=== PATIENT | male | born 1960 | race Two or more races ===

== ENCOUNTER 2018-07-08 05:10 | Inpatient (IN) | payer OTHER ==
[~2018-07-08] VITALS: Ht 182.9 cm; Wt 113.4 kg
[2018-07-08] MEDS ORDERED: KETOROLAC TROMETHAMINE INJ 30 MG/ML VIAL ONE (06:06)
[2018-07-08] MEDS ORDERED: ANESTHESIA TRAY IN PYXIS 1 EA TRAY MC ONE (06:06)
[2018-07-08] MEDS ORDERED: BACITRACIN 50000 UNITS/VIAL ONE (06:07)
[2018-07-08] MEDS ORDERED: BUPIVACAINE MPF 0.5% W/EPI INJ 30 ML VIAL ONE (06:07)
[2018-07-08] MEDS ORDERED: oxyCODONE HCL SR 10MG TAB.SR.12H PO ONE (06:10)
[2018-07-08] MEDS ORDERED: CEFAZOLIN SODIUM/DEXTROSE,ISO 50 ML IV ONE (06:11)
[2018-07-08] MEDS ORDERED: CELECOXIB 100 MG CAPSULE ONE (06:11)
[2018-07-08] MEDS ORDERED: ACETAMINOPHEN 325 MG TABLET ONE (06:12)
[2018-07-08] MEDS ORDERED: MORPHINE SULFATE/PF 10 MG/10ML (1MG/ML) AMPUL ONE (06:26)
[2018-07-08] MEDS ORDERED: MIDAZOLAM HCL 2 MG/2ML VIAL ONE (06:27)
[2018-07-08] MEDS ORDERED: BUPIVACAINE 0.75% DEXT-PF 2 ML AMPUL ONE (06:28)
[2018-07-08] MEDS ORDERED: TRANEXAMIC ACID 3,000 MG in SODIUM CHLORIDE IRRIG SOLUTION 70 ML IR ONE (07:30)
[2018-07-08 08:00] VITALS: BP 150/79
[2018-07-08] MEDS ORDERED: FENTANYL PF 100MCG/2ML AMPUL ONE ×2 (08:36→08:44)
[2018-07-08] MEDS ORDERED: HYDROMORPHONE INJ 2 MG/ML DISP.SYRIN ONE (09:00)
--- NOTE | 2018-07-08 11:00 | NUR ---
RN NOTES PT WAS BROUGHT ONTO THE FLOOR FROM SURGERY IN STABLE CONDITION. VITALS ARE STABLE, PT ABLE TO TOLERATE ROOM AIR. L KNEE DRESSING IS INTACT WITH NO SIGNS OF BLEEDING NOTED. PT IS ABLE TO WIGGLE HIS TOES ON BOTH FEET AND CAN FEEL SENSATION. PT STATES THAT HE IS IN 10/10 PAIN AND NEEDS SOMETHING FOR PAIN MANAGEMENT SOON POSSIBLE. WILL FOLLOW UP WITH PHARMACY FOR MEDICATIONS ORDERED BY .
[2018-07-08] MEDS: HYDROMORPHONE INJ 2 MG/ML DISP.SYRIN SQ PRN ×5 (11:29→23:38)
[2018-07-08 11:30] VITALS: BP 162/91
[2018-07-08] MEDS ORDERED: ACETAMINOPHEN 325 MG TABLET PO PRN (11:30)
[2018-07-08] MEDS ORDERED: NALOXONE HCL 0.4 MG/ML AMPUL IV PRN (11:30)
[2018-07-08] MEDS ORDERED: oxyCODONE IR immediate release 5 MG PO PRN ×2 (11:30→20:30)
[2018-07-08] MEDS ORDERED: SENNOSIDES 8.6 MG TABLET PO PRN (11:30)
[2018-07-08] MEDS ORDERED: ZOLPIDEM TARTRATE 5 MG TABLET PO PRN (11:30)
[2018-07-08] MEDS ORDERED: MENTHOL/CETYLPYRD (CEPACOL) 1 LOZ LOZENGE MM PRN (11:30)
[2018-07-08] MEDS ORDERED: BISACODYL SUPP (10 MG) 10 MG/SUPP.RECT SUPP.RECT RC PRN (11:30)
[2018-07-08] MEDS ORDERED: ONDANSETRON HCL/PF 4 MG/2 ML VIAL IVP PRN ×2 (11:30→21:30)
[2018-07-08] MEDS ORDERED: MAGNESIUM HYDROXIDE 30 ML UDC PO PRN ×2 (11:30→21:30)
[2018-07-08] MEDS ORDERED: CLONIDINE HCL 0.1 MG TABLET PO PRN (11:30)
[2018-07-08] MEDS ORDERED: diphenhydrAMINE HCL 25 MG CAPSULE PO PRN (11:30)
[2018-07-08] MEDS ORDERED: MAG HYDROX/AL HYDROX/SIMETH 30 ML UDC PO PRN ×2 (11:30→21:30)
[2018-07-08] MEDS: oxyCODONE IR immediate release 5 MG PO PRN ×4 (11:34→21:56)
--- NOTE | 2018-07-08 11:35 | NUR ---
RN NOTES PT CRYING AND MOANING, STATES HE IS IN 10/10 PAIN AFTER SURGERY. DILAUDID 1 MG GIVEN ORDERED. AMMUNITION ASSEMBLY LABORER MADE AWARE OF PTS PAIN AND STATED TO GIVE OXYCODONE IR 15MG ORDERED PRN.WILL CONTINUE TO MONITOR.
--- NOTE | 2018-07-08 12:05 | NUR ---
RN NOTES PT STATES HE IS STILL IN 10/10 PAIN WITH NO RELIEF FROM MEDICATIONS, CRYING AND SCREAMING. DR. RAGLAND CALLED AND MADE AWARE OF UNCONTROLLED PAIN. PER MD, CONTINUE TO MONITOR PAIN FOR HALF AN HOUR TO SEE IF PAIN IS BETTER CONTROLLED.
[2018-07-08 12:25] VITALS: BP 141/82
--- NOTE | 2018-07-08 12:35 | NUR ---
RN NOTES PT IS IN BED WITH AT BEDSIDE. PT IS STILL MOANING IN PAIN, STATES THAT HE STILL HAS 10/10 PAIN WITH NO RELIEF FROM THE DILAUDID OR OXY IR GIVEN. BP IS 141/82, HR IS 105. WILL NOTIFY MD AND CONTINUE TO MONITOR.
[2018-07-08] MEDS ORDERED: oxyCODONE IR immediate release 5 MG PO ONE (13:30)
[2018-07-08] MEDS: ANCEF 1 GM/50 ML D5W IV SCH ×4 (14:32→23:38)
[2018-07-08] MEDS: IV D5/0.45 NACL 1,000 ML IV PRN (14:32)
[2018-07-08] MEDS ORDERED: OXYC-133 PO (15:06)
[2018-07-08] MEDS ORDERED: FAMO20TA8 PO (15:06)
[2018-07-08] MEDS ORDERED: PIOG45TA5 PO (15:06)
[2018-07-08] MEDS ORDERED: METF10004 PO (15:06)
[2018-07-08] MEDS ORDERED: SIMV10TA6 PO (15:06)
[2018-07-08] MEDS ORDERED: SITA100T PO (15:06)
[2018-07-08] MEDS ORDERED: LISI10TA5 PO (15:06)
[2018-07-08 16:00] VITALS: BP 150/79
[2018-07-08] MEDS: DOCUSATE SODIUM 100 MG CAPSULE PO SCH (17:31)
[2018-07-08] MEDS ORDERED: MAGNESIUM CITRATE 296 ML BOTTLE PO STA (17:52)
[2018-07-08 18:30] VITALS: BP 140/73
--- NOTE | 2018-07-08 18:32 | NUR ---
RN NOTES PT IS SITTING UP IN BED WITH CPM MACHINE IN PLACE. PT ON RA, RESPIRATIONS ARE EVEN AND UNLABORED. IV ON L WRIST INTACT AND RUNNING D51/2 NS@75ML/HR. FUENTES CATHETER IS IN PLACE AND DRAINING TO GRAVITY. ALL MEDS WERE GIVEN ORDERED AND PT NEEDS MET. SAFETY MEASURES ARE IN PLACE, CALL LIGHT IS IN REACH. WILL ENDORSE TO PHLEBOTOMIST ASSOCIATE RN FOR CONTINUITY OF CARE.
--- NOTE | 2018-07-08 19:15 | NUR ---
TELE/RN NOTES RECEIVED PT. LYING IN BED. PT. IS AWAKE, ALERT AND ORIENTED X4. BREATHING EVEN AND UNLABORED ON ROOM AIR. NO SOB OR RESPIRATORY DISTRESS NOTED AT THIS TIME. PT. COMPLAINING OF PAIN IN LEFT KNEE, PT. STATED HE RECENTLY RECEIVED PAIN MEDICATION AND IT IS EFFECTIVE. WILL CONTINUE TO MONITOR AND ASSESS PT. PAIN LEVEL AND ADMINISTER TO PT. PAIN MEDICATION ORDERED. PT. WITH EXTERNAL CAVING GUIDE PRESENT AND INTACT, CURRENT RHYTHM = SINUS TACHYCARDIA HR 118, PER DAYSHIFT NURSE IS AWARE. PT. WITH LEFT WRIST 18 GAUGE PERIPHERAL IV PRESENT, PATENT AND INTACT. PT. WITH FUENTES CATHETER PRESENT, PATENT AND INTACT DRAINING CLEAR YELLOW URINE. PT. WITH LEFT KNEE POST OP DRESSING PRESENT, CLEAN, DRY AND INTACT. NO BLEEDING OR DRAINAGE NOTED. BED LOCKED AND IN LOWEST POSITION, SIDE RAILS UP X2, CALL LIGHT WITHIN REACH, WILL CONTINUE TO MONITOR.
[2018-07-08 20:00] VITALS: BP 139/76
[2018-07-08] MEDS ORDERED: FAMOTIDINE (20 MG) 20 MG TABLET PO SCH (21:00)
[2018-07-08] MEDS ORDERED: DEXTROSE 50%-WATER 50 ML DISP.SYRIN IV PRN (21:30)
[2018-07-08] MEDS: SIMVASTATIN 10 MG TABLET PO SCH (21:55)
[2018-07-08] MEDS: TAMSULOSIN 0.4 MG CAP.SR.24H PO SCH (21:56)
[2018-07-08] MEDS: BLOOD SUGAR DIAGNOSTIC 1 EACH STRIP VI SCH (22:04)
[2018-07-08] MEDS: *INSULIN REGULAR(HUMULIN R)HUM 100 UNIT/ML VIAL SQ PRN (22:05)
[2018-07-09] VITALS: BP 137/75
[2018-07-09] MEDS: oxyCODONE IR immediate release 5 MG PO PRN ×8 (01:35→23:30)
[2018-07-09] MEDS: HYDROMORPHONE INJ 2 MG/ML DISP.SYRIN SQ PRN ×7 (02:39→21:31)
[2018-07-09] MEDS: IV D5/0.45 NACL 1,000 ML IV PRN (05:03)
--- NOTE | 2018-07-09 06:50 | NUR ---
TELE/RN NOTES PT. IS LYING IN BED. PT. IS AWAKE, ALERT AND ORIENTED X4. BREATHING EVEN AND UNLABORED ON ROOM AIR. NO SOB OR RESPIRATORY DISTRESS NOTED AT THIS TIME. PT. COMPLAINING OF PAIN IN LEFT KNEE, PAIN MEDICATION IS NOT DUE AT THIS TIME, WILL ADMINISTER TO PT. PAIN MEDICATION WHEN AVAILABLE. PT. WITH EXTERNAL OUTSOLE FLEXER PRESENT AND INTACT, CURRENT RHYTHM = SINUS TACHYCARDIA HR 106. PT. WITH LEFT WRIST 18 GAUGE PERIPHERAL IV PRESENT, PATENT AND INTACT. PT. WITH FUENTES CATHETER PRESENT, PATENT AND INTACT DRAINING CLEAR YELLOW URINE. PT. WITH LEFT KNEE POST OP DRESSING PRESENT, CLEAN, DRY AND INTACT. NO BLEEDING OR DRAINAGE NOTED. ALL PT. NEEDS MET. BED LOCKED AND IN LOWEST POSITION, SIDE RAILS UP X2, CALL LIGHT WITHIN REACH, WILL ENDORSE TO DAYSHIFT NURSE FOR CONTINUITY OF CARE.
[2018-07-09] MEDS: INSULIN REGULAR, HUMAN 100 UNIT/ML 3 ML VIAL SQ PRN ×3 (06:54→17:26)
[2018-07-09] MEDS: BLOOD SUGAR DIAGNOSTIC 1 EACH STRIP VI SCH ×4 (06:56→21:41)
[2018-07-09 07:44] LABS: BASOPHILS % (AUTO) 0.2 % (0.0-2.0); EOSINOPHILS % (AUTO) 0.1 % (0.0-6.0); HEMATOCRIT 35 % (39-51); HEMOGLOBIN 11.8 g/dL (13.5-17.5); LYMPHOCYTES # (AUTO) 0.6 /CMM (0.8-4.8); LYMPHOCYTES % (AUTO) 8.3 % (20.0-44.0); MEAN CORPUSCULAR HEMOGLOBIN 30 PG (26.0-33.0); MEAN CORPUSCULAR HGB CONC 34 g/dl (31.0-36.0); MEAN CORPUSCULAR VOLUME 88 fL (80-96); MONOCYTES # (AUTO) 0.6 /CMM (0.1-1.30); MONOCYTES % (AUTO) 8.3 % (2.0-12.0); NEUTROPHILS % (AUTO) 83.1 % (43.0-81.0); PLATELET COUNT (AUTO) 218 /CMM (150-450); RDW COEFFICIENT OF VARIATION 13.6 (11.5-15.0); RED BLOOD CELL COUNT(AUTO) 3.93 MIL/uL (4.5-6.0); WHITE BLOOD COUNT (AUTO) 7.2 K/uL (4.3-11.0)
--- NOTE | 2018-07-09 07:50 | NUR ---
ms rn received on bed, awake,alert,oriented x4,s/p left knee sx , complaining of pain 09/04, will monitor patient.
[2018-07-09 08:00] VITALS: BP 136/81
[2018-07-09 08:08] LABS: CALCIUM, SERUM 8.2 mg/dL (8.5-10.1); CREATININE 0.9 mg/dL (0.6-1.3); MAGNESIUM 1.8 mg/dL (1.8-2.4); PHOSPHORUS 2.5 mg/dL (2.5-4.9); POTASSIUM 3.7 mmol/L (3.5-5.1)
--- NOTE | 2018-07-09 08:10 | NUR ---
ms slater oxi ir po given for pain, will monitor pain accordingly.
--- NOTE | 2018-07-09 08:40 | NUR ---
ms rn dilaudid 0.5 mg sq given again for breakthrough pain, will assess patient after 30 min.
[2018-07-09] MEDS: PSYLLIUM SEED 1 PKT PACKET PO SCH ×2 (08:41→16:21)
[2018-07-09] MEDS: DOCUSATE SODIUM 100 MG CAPSULE PO SCH ×2 (08:41→16:21)
[2018-07-09] MEDS: FAMOTIDINE (20 MG) 20 MG TABLET PO SCH (08:41)
[2018-07-09] MEDS: ASPIRIN 325 MG TABLET PO SCH ×2 (08:41→16:21)
[2018-07-09] MEDS: LISINOPRIL (10MG) 10 MG TABLET PO SCH (08:42)
--- NOTE | 2018-07-09 10:00 | NUR ---
ms nohemy endorsed to nohemy Minaya for continuity of care.
--- NOTE | 2018-07-09 10:32 | NUR ---
telecommunications analyst notes Spoke to Sal Soliz NP regarding patient pain medication and ordered Dilaudid 0.5 mg IV x 1 dose only. All orders carried out and noted. Will continue to monitor accordingly.
[2018-07-09] MEDS ORDERED: HYDROMORPHONE INJ 2 MG/ML DISP.SYRIN IV ONE (11:00)
[2018-07-09] MEDS ORDERED: HYDROMORPHONE INJ 0.5 MG/0.5 ML SYRINGE IV ONE (11:00)
[2018-07-09 16:00] VITALS: BP 136/73
--- NOTE | 2018-07-09 17:35 | NUR ---
ms rn notes Spoke to Sal Soliz regarding patient blood sugar, patient wondering why his sugar is elevated and informed patient due to he is on D5 1/2 NS and MD made aware and ordered to discontinue IV due to patient is eating and drinking well. All orders carried out and noted. Will continue to monitor accordingly.
--- NOTE | 2018-07-09 19:07 | NUR ---
MS RN CLOSING NOTES All needs provided, attended, and anticipated, patient in stable condition at this time. Endorsed to next shift RN to continue care. Call light with in patient reach.
--- NOTE | 2018-07-09 19:30 | NUR ---
RN NOTES RECEIVED PATIENT IN BED AWAKE. AO X 3, ABLE TO MAKE NEEDS KNOWN. NO ACUTE DISTRESS NOTED. MONITORED FOR PAIN. IV SITE PATENT, INTACT; FLUSHED. LEFT LEG DRESSING INTACT. LEFT LEG ON CPM MACHINE. FUENTES CATH PATENT, INTACT; DRAINING CLEAR YELLOW URINE. SAFETY REMINDERS GIVEN. ON LOW BED WITH BILATERAL UPPER SIDE RAILS UP. CALL COBOS WITHIN EASY REACH. WILL CONTINUE TO MONITOR.
[2018-07-09 20:00] VITALS: BP 161/81
[2018-07-09] MEDS: TAMSULOSIN 0.4 MG CAP.SR.24H PO SCH (21:31)
[2018-07-09] MEDS: SIMVASTATIN 10 MG TABLET PO SCH (21:31)
[2018-07-09] MEDS: *INSULIN REGULAR(HUMULIN R)HUM 100 UNIT/ML VIAL SQ PRN (21:40)
[2018-07-10] MEDS: HYDROMORPHONE INJ 2 MG/ML DISP.SYRIN SQ PRN ×5 (00:30→12:47)
[2018-07-10] MEDS: oxyCODONE IR immediate release 5 MG PO PRN ×4 (02:31→11:35)
--- NOTE | 2018-07-10 06:00 | NUR ---
RN NOTES PATIENT IN BED WITH EYES CLOSED, EASILY AROUSABLE. RESPIRATIONS EVEN. NO SIGNS OF DISCOMFORT AT THIS TIME. DUE MEDS GIVEN WITH NO ASE NOTED. NEEDS ATTENDED. SAFETY PRECAUTIONS AND COMFORT MEASURES IN PLACE. WILL GIVE REPORT TO DAY SHIFT FOR CONTINUITY OF CARE.
[2018-07-10] MEDS: BLOOD SUGAR DIAGNOSTIC 1 EACH STRIP VI SCH ×2 (06:31→12:47)
[2018-07-10] MEDS: INSULIN REGULAR, HUMAN 100 UNIT/ML 3 ML VIAL SQ PRN ×2 (06:33→12:14)
[2018-07-10 06:38] LABS: BASOPHILS % (AUTO) 0.4 % (0.0-2.0); EOSINOPHILS % (AUTO) 1.7 % (0.0-6.0); HEMATOCRIT 35 % (39-51); LYMPHOCYTES # (AUTO) 0.8 /CMM (0.8-4.8); LYMPHOCYTES % (AUTO) 11.9 % (20.0-44.0); MEAN CORPUSCULAR HEMOGLOBIN 31 PG (26.0-33.0); MEAN CORPUSCULAR HGB CONC 35 g/dl (31.0-36.0); MEAN CORPUSCULAR VOLUME 88 fL (80-96); MONOCYTES # (AUTO) 0.9 /CMM (0.1-1.30); MONOCYTES % (AUTO) 12.9 % (2.0-12.0); NEUTROPHILS # (AUTO) 4.8 /CMM (1.8-8.9); NEUTROPHILS % (AUTO) 73.1 % (43.0-81.0); PLATELET COUNT (AUTO) 209 /CMM (150-450); RDW COEFFICIENT OF VARIATION 13.3 (11.5-15.0); WHITE BLOOD COUNT (AUTO) 6.6 K/uL (4.3-11.0)
--- NOTE | 2018-07-10 07:20 | NUR ---
MS/RN OPENING NOTE PATIENT IS RECEIVED IN BED AWAKE. ALERT AND ORIENTED X4. DENIES SOB AT THIS TIME. RESPIRATION REGULAR AND UNLABORED. DENIES PAIN AT THIS TIME. PATIENT IN NO APPARENT DISTRESS. FUENTES CATH DRAINING CLEAR AND YELLOW COLOR URINE. LEFT KNEE INCISION DRESSING ON WITH NO STRIKE THRUE. RIGHT HAND G 22 PATENT AND SALINE LOCKED. BED LOW AND LOCKED. SIDE RAILS UP X3. CALL LIGHT WITHIN REACH. WILL CONTINUE TO MONITOR.
[2018-07-10 08:00] VITALS: BP 153/78
[2018-07-10] MEDS: ASPIRIN 325 MG TABLET PO SCH (08:34)
[2018-07-10] MEDS: DOCUSATE SODIUM 100 MG CAPSULE PO SCH (08:34)
[2018-07-10] MEDS: LISINOPRIL (10MG) 10 MG TABLET PO SCH (08:35)
[2018-07-10] MEDS: PSYLLIUM SEED 1 PKT PACKET PO SCH (08:35)
[2018-07-10] MEDS: FAMOTIDINE (20 MG) 20 MG TABLET PO SCH (08:35)
[2018-07-10 09:58] VITALS: BP 131/72
[2018-07-10] MEDS ORDERED: BISA10SU8 RC (11:18)
[2018-07-10] MEDS ORDERED: ASPI-992 PO (11:18)
[2018-07-10] MEDS ORDERED: OXYC5CAP18 PO (11:19)
[2018-07-10] MEDS ORDERED: DOCU-141 PO (11:19)
--- NOTE | 2018-07-10 13:34 | NUR ---
MS/RN CLOSING NOTE PATIENT ALERT AND ORIENTED X4. DENIES SOB. RESPIRATION REGULAR AND UNLABORED. DENIES PAIN. PATIENT IN NO APPARENT DISTRESS. DISCHARGE INSTRUCTIONS GIVEN TO THE PATIENT AND HE VERBALIZED UNDERSTANDING. REPORT GIVEN TO LUKE FARMER. PATIENT LEFT THE FACILITY IN STABLE CONDITION.
== END 2018-07-10 13:30 | DRG 470 ==
LOC: DS 05:10 → MED 10:33 → TELE 07-09 04:05 → MED 07-09 09:03
PROVIDERS: ADMIT Specialist; ATTEND Specialist
PROC: 0SRD0J9 Replacement of Left Knee Joint with Synthetic Substitute, Cemented, Open Approach (ICD-10-PCS; principal; 2018-07-08 06:30)
DX: M17.12 Unilateral primary osteoarthritis, left knee (principal); E87.1 Hypo-osmolality and hyponatremia; I10 Essential (primary) hypertension; E66.9 Obesity, unspecified; E78.5 Hyperlipidemia, unspecified; E11.9 Type 2 diabetes mellitus without complications; Z68.33 Body mass index [BMI] 33.0-33.9, adult; G89.4 Chronic pain syndrome; Z79.891 Long term (current) use of opiate analgesic; Z79.84 Long term (current) use of oral hypoglycemic drugs
CPT/HCPCS: 36415; 80048-TC; 82962-TC; 83735-TC; 84100-TC; 85025-TC; 86850-TC; 87081-TC; 88305-TC; 88311-TC; 97110-TC; 97116-TC; 97530-TC; 97760-TC; A4217; J0690; J1170; J1815; J1885; J2250; J2274; J3010; J3490; J7030; J7060; Z7610